=== PATIENT | male | born 1955 | race Caucasian/White ===

== ENCOUNTER 2017-04-03 05:50 | Day surgery (SDC) | payer BC ==
[2017-04-03] MEDS ORDERED: Lactated Ringers 1,000 ML IV SCH (06:30)
[2017-04-03] MEDS ORDERED: SUBLIMAZE 100 MCG/2 ML IV ONE (08:00)
[2017-04-03] MEDS ORDERED: DIPRIVAN 200 MG/20 ML IV ONE (08:30)
[2017-04-03 09:34] VITALS: BP 144/79; PULSE 65; O2SAT 95
--- NOTE | 2017-04-03 09:59 | OP ---
SURGERY DATE/TIME: 04/03/2017723 PREOPERATIVE DIAGNOSIS: Screening colonoscopy. POSTOPERATIVE DIAGNOSIS: Colitis of the cecum and distal sigmoid colon. PROCEDURE: Colonoscopy. SURGEON: Michael Cosby M.D. ANESTHESIA: MAC by Sal Alarcon CRNA. ESTIMATED BLOOD LOSS: Minimal. SPECIMENS: Cold forceps biopsies from the cecum and sigmoid colon. DESCRIPTION OF PROCEDURE: After informed written consent was obtained, the patient was taken to the endoscopy suite. He underwent monitored anesthesia and digital rectal exam showed normal sphincter tone and no internal lesions. The scope was inserted in the rectum and sequentially the entire colonic mucosa was traversed. Pericecal region had colitis-type changes with mild inflammation but no obvious masses or polypoid lesions were present. The ileocecal valve was directly visualized. Two cold forceps biopsies were taken of the pericecal region and sent for pathology testing due to the inflammatory changes. Upon withdrawal there were no lesions encountered with good visualization down to the level of the distal sigmoid colon. There was circumferential significant colitis. Pictures were taken of this area. Three cold forceps biopsies were taken circumferentially in paper sales representative area and sent for pathology testing. There were no gross masses or polypoid-type lesions in this area but just circumferential mucosal inflammatory changes. Upon further withdrawal no other lesions were encountered. Prior to withdrawal retroflexion was performed which showed no internal lesions. The scope was removed and the patient was transferred to the recovery room in excellent condition. He will follow up in one week with pathology results.
== END 2017-04-03 09:15 | disposition home or self-care (01) ==
LOC: SDC 05:50
PROVIDERS: ATTEND Family Medicine
PROC: 0DBH8ZX Excision of Cecum, Via Natural or Artificial Opening Endoscopic, Diagnostic (ICD-10-PCS; principal; 2017-04-03)
PROC: 0DBN8ZX Excision of Sigmoid Colon, Via Natural or Artificial Opening Endoscopic, Diagnostic (ICD-10-PCS; 2017-04-03)
DX: K52.9 Noninfective gastroenteritis and colitis, unspecified (principal)
CPT/HCPCS: 00810; 36415; 88305; J2704; J3010

== ENCOUNTER 2021-01-04 05:49 | Day surgery (SDC) | payer BC ==
[2021-01-04] MEDS ORDERED: Lactated Ringers 1,000 ML IV ONE ×2 (06:11→08:25)
[2021-01-04] MEDS ORDERED: Lactated Ringers 1,000 ML IV SCH (06:30)
[2021-01-04 08:54] VITALS: O2SAT 97
[2021-01-04 09:18] VITALS: PULSE 59
[2021-01-04 09:20] VITALS: BP 137/84
--- NOTE | 2021-01-04 10:40 | OP ---
SURGERY DATE/TIME: 01/04/2021 0806 PREOPERATIVE DIAGNOSES: 1) History of ulcerative colitis. 2) Rectal bleeding. POSTOPERATIVE DIAGNOSIS: Normal colon. PROCEDURE: Diagnostic colonoscopy. SURGEON: Michael Cosby M.D. ANESTHESIA: MAC by Kishor Adkins CRNA. ESTIMATED BLOOD LOSS: None. SPECIMENS: None. DESCRIPTION OF PROCEDURE: After informed written consent was obtained, the patient was taken to the endoscopy suite. He underwent monitored anesthesia and was titrated to desired level of consciousness. A digital rectal exam showed normal sphincter tone and no internal lesions. The scope was inserted into the rectum and sequentially the entire colonic mucosa was traversed. The level of cecum was reached and verified with direct visualization of the ileocecal valve. Upon withdrawal careful mucosal inspection revealed no gross mucosal abnormalities. Prep was noted to be good. There were no obvious areas of inflammation, no active bleeding, no polyps or other mucosal abnormalities were appreciable. Prior to withdrawal retroflexion was performed and showed no internal lesions. The scope was removed and the patient was transferred to the recovery room in good condition.
== END 2021-01-04 09:20 | disposition home or self-care (01) ==
LOC: SDC 05:49
PROVIDERS: ATTEND Family Medicine
DX: K62.5 Hemorrhage of anus and rectum (principal); I10 Essential (primary) hypertension; Z79.899 Other long term (current) drug therapy; Z87.19 Personal history of other diseases of the digestive system

== ENCOUNTER 2023-04-12 10:02 | Day surgery (SDC) | payer BC ==
[2023-04-12] MEDS ORDERED: EXPAREL 133 MG/10 ML VIAL IJ ONE (10:03)
[2023-04-12] MEDS ORDERED: CEFAZOLIN 2 GM-D5W BAG** 2 GM/50 ML ML IV ONE (10:20)
[2023-04-12] MEDS ORDERED: Lactated Ringers 1,000 ML IV ONE (10:20)
[2023-04-12] MEDS ORDERED: CEFAZOLIN 2 GM-D5W BAG** 2 GM/50 ML ML IV SCH (10:30)
[2023-04-12] MEDS ORDERED: Lactated Ringers 1,000 ML IV SCH (10:30)
[2023-04-12] MEDS ORDERED: Xylocaine-Mpf 2% 5 Ml Vial ONE (12:25)
[2023-04-12] MEDS ORDERED: Zofran 4 MG/2 ML VIAL ONE (12:25)
[2023-04-12] MEDS ORDERED: Decadron 4 MG INJ ONE (12:25)
[2023-04-12] MEDS ORDERED: Versed 2 MG/2 ML Injection ONE (12:26)
[2023-04-12] MEDS ORDERED: Quelicin Fliptop 200 MG/10 ML ONE (12:26)
[2023-04-12] MEDS ORDERED: SUBLIMAZE 100 MCG/2 ML ONE ×2 (12:26→14:47)
[2023-04-12] MEDS ORDERED: DIPRIVAN 200 MG/20 ML IV ONE (12:26)
[2023-04-12] MEDS ORDERED: Epinephrine Preservative Free 1 MG/ML ONE (12:29)
[2023-04-12] MEDS ORDERED: MARCAINE 0.25% PF/ EPI 1:200,000 ONE (12:35)
[2023-04-12] MEDS ORDERED: Marcaine Mpf 0.5% Vial 30 Ml ONE (12:36)
[2023-04-12] MEDS ORDERED: OFIRMEV 100 ML IV ONE (12:37)
[2023-04-12] MEDS ORDERED: Pre-Attached Lta Kit TP ONE (12:37)
[2023-04-12] MEDS ORDERED: Ephedrine Sulfate 50 MG/ML ONE (13:44)
--- NOTE | 2023-04-12 16:32 | XRAY ---
Indication: Right foot subtalar arthrodesis. Intraoperative fluoroscopy provided for 3 minute 19 seconds. 15 digital spot images submitted for interpretation ultimately demonstrates talocalcaneal fusion with 3 intact screws. Correlate with intraoperative findings/report.
[2023-04-12 17:11] VITALS: O2SAT 97
[2023-04-12 17:17] VITALS: BP 141/77; PULSE 56
--- NOTE | 2023-04-15 14:19 | OP ---
SURGERY DATE/TIME: 04/12/2023 1329 PREOPERATIVE DIAGNOSES: 1) Posttraumatic arthritis subtalar joint right foot. 2) Right foot pain. 3) Right ankle pain. 4) Ankle synovitis. 5) Sinus tarsi syndrome. POSTOPERATIVE DIAGNOSES: 1) Posttraumatic arthritis subtalar joint right foot. 2) Right foot pain. 3) Right ankle pain. 4) Ankle synovitis. 5) Sinus tarsi syndrome. PROCEDURE: Ankle arthroscopy with extensive synovectomy right ankle and subtalar joint arthrodesis right foot. SURGEON: Dinh Blake DPM. FIRMWARE ENGINEER: None. ANESTHESIA: General plus a preoperative popliteal and abductor canal block. HEMOSTASIS: Thigh tourniquet set to 300 mm of Mercury for a total of 80 total tourniquet minutes. ESTIMATED BLOOD LOSS: Less than 10 cc. MATERIALS: 4-0 Monocryl, 3-9 Nylon, one - 6.5 x 58 mm headless screw, one - 8.0 x 70 mm threaded headed screw, 6.5 x 56 mm headless screw and 1 cc of bonus triad with bone marrow aspirate. INJECTABLES: See anesthesia report for details. INDICATION FOR SURGERY: Benton is a very pleasant 67-year-old male who met with me much earlier this year in November. The patient had brought in an MRI from 2004 demonstrating a through AB fracture of the right calcaneus. The patient had a very significantly delayed presentation secondary to the fact that he did have insurance. The patient was amenable to conservative therapy at that time. However, the patient has tried lace up boots. He has failed injections for control of the pain and would like to proceed with surgical intervention at this time. The patient understands all risks, complications and benefits of surgical intervention at this time including but not limited to infection, hematoma, seroma, possibility of delayed wound healing, nonwound healing, possibility of need for further surgical intervention at a later date. No guarantees were provided as to the outcome of surgical intervention. Plenty of time was allowed for the patient to ask questions which were answered to the patient's apparent satisfaction. It is with that we decided to proceed. DESCRIPTION OF PROCEDURE AND FINDINGS: The patient is brought into the OR and placed on the OR table in the supine position. At this time, general anesthesia was administered until the patient was sedated. A well-padded thigh tourniquet was applied to the patient's right thigh. The tourniquet was set to 300 mm of Mercury. At this time right lower extremity was prepped and draped in the typical sterile fashion and lowered onto the surgical field. Attention was directed to the anterior aspect of the right ankle where the medial malleolus, lateral malleolus and the palpable dell of the ankle joint in dorsiflexion was identified. Identification line and landmarks were identified and portals were established utilizing the stab line. An insufflation needle was introduced from anteromedial portal insufflating the joint with approximately 20 cc of lactated Ringers. At this time an incision was made utilizing 11 blade to the skin. A curved hemostat was introduced into the layer and insufflation once the capsule was breached flushed out. A blunt obturator and trocar was introduced into this site. The obturator was then removed a 4.0 mm camera on a 30 degree scope was then introduced into the ankle joint. Visualization of the joint showed a significant amount of crabmeat synovitis as well as hemorrhagic synovitis. The shaver was then introduced from anterolateral portal under direct visualization and 11 blade was then utilized to make an incision through the skin and once again a curved mini hemostat was introduced to the lateral aspect of the wound this was triangulated and identified. The shaver was then introduced and a significant amount of synovitis was cleaned out from this site. The joint was inspected and deemed to be of relatively decent quality. However there had been indications of some scuffing to the tailor body. Pictures were taken of the joint prior to and after the synovectomy was performed. At this time the sites were then reversed and further extensive synovectomy was performed until there was no residual synovitis identified. Final pictures were then taken and printed this is in the patient's paper chart at this time. We removed the scope from the field. Attention was directed to the lateral aspect of the calcaneus where bone marrow aspirate was harvested this was mixed with 1 cc Bonus Triad for later use in the procedure. At this time Esmarch was utilized to exsanguinate the leg and the tourniquet was inflated to 300 mm of Mercury. Incision was made on the distal tip of the anterior process of the calcaneus to the distal tip of the fibula being careful not to dilate the calcaneal fibular ligament. At this time the incision was deepened to the level of the subtalar joint. A significant amount of time was utilized at this time to clean out the subtalar joint of any remaining cartilage of which there was very little however fenestrating the bone until the subchondral plate was identified and paprika sign bleeding was identified. At this time copious amounts of sterile saline were utilized to flush the site this occurred multiple times in order to check to make sure there was no residual cartilage on the fusion site. Once this had been achieved, 2.0 mm drill was introduced into the fusion site in order to drill for vascular channel. A curved osteotome was utilized to increase surface area and a curette was utilized to break through the subchondral plate. The 1 cc of Bonus Triad soaked in bone marrow aspirate was introduced into the fusion site and then a 6.5 x 58 headless compression screw and an 8.0 x 16 mm threaded screw was introduced into the subtalar joint trying to be as perpendicular to the posterior facet as possible this showed a good amount of compression. For added stability a headless 6.5 x 56 mm screw was introduced from the lateral aspect of the calcaneus into the talar head. Following this copious amounts of sterile saline were utilized to flush the surgical site and any sites had any opening were backfilled with some of the remaining Bonus Triad. The incisions were coapted utilizing 4-0 Monocryl in a simple interrupted-type fashion and 3-0 Nylon was utilized in a horizontal mattress-type fashion to coapt the skin edges. Following this a dressing consisting of Betadine, Adaptic, 4x4, Kerlix and a well-padded posterior splint was applied to the patient's right lower extremity. The patient was then reversed from anesthesia and returned to the postoperative anesthesia care unit with vital signs stable and vascular status intact. The patient handled the anesthesia as well as the procedure without significant complication. Postoperative orders as indicated in the patient's discharge chart.
== END 2023-04-12 17:40 | disposition home or self-care (01) ==
LOC: SDC 10:02
PROVIDERS: ATTEND Podiatrist Foot & Ankle Surgery
DX: M13.871 Other specified arthritis, right ankle and foot (principal); M79.671 Pain in right foot; M25.571 Pain in right ankle and joints of right foot; M65.9 Synovitis and tenosynovitis, unspecified
CPT/HCPCS: 28725; 29898; 73610; 76000; 76937; C1713; C1762; J0171; J0330; J0690; J1100; J2250; J2405; J2704; J3010

== ENCOUNTER 2024-12-30 05:26 | Day surgery (SDC) | payer MEDICARE ==
[2024-12-30] MEDS ORDERED: Lactated Ringers 1,000 ML IV ONE (06:06)
[2024-12-30] MEDS: Lactated Ringers 1,000 ML IV SCH (06:11)
[2024-12-30 07:04] LABS: Absolute Neutrophil Ct (ANC) 3.37 x10^3/uL (1.78-5.38); BASOPHIL % 0.5 % (0.2-1.2); Basophil (Absolute #) 0.03 x10^3/uL (0.01-0.08); Eosinophil % 2.1 % (0.8-7.0); Eosinophil (Absolute #) 0.12 x10^3/uL (0.04-0.54); Hematocrit 38.1 % (40.1-51.0); Hemoglobin 13.2 g/dL (13.7-17.5); IMMATURE GRAN # 0.02 x10^3u/L (0.001-0.031); IMMATURE GRAN % 0.3 % (0.001-0.429); Lymphocyte (Absolute #) 1.77 x10^3/uL (1.32-3.57); Lymphocytes % 30.3 % (21.8-53.1); Mean Cell Volume 89.6 fL (79.0-92.2); Mean Corpuscular Hemoglobin 31.1 pg (25.7-32.2); Mean Corpuscular Hgb Concent. 34.6 g/dL (32.3-36.5); Monocyte (Absolute #) 0.53 x10^3/uL (0.30-0.82); Monocytes % 9.1 % (5.3-12.2); Neutrophil % 57.7 % (34.0-67.9); Platelet Count 270 x10^3/uL (163-337); Red Blood Count 4.25 x10^6/uL (4.63-6.08); Red Cell Distribution Width 12.6 % (11.6-14.4); White Blood Count 5.8 x10^3/uL (4.23-9.07)
[2024-12-30] MEDS ORDERED: propofoL IV ONE (07:16)
[2024-12-30] MEDS ORDERED: Versed 2 MG/2 ML Injection ONE (07:16)
[2024-12-30 07:17] LABS: ANION GAP 12.4 MEQ/L (5-15); Calcium 9.2 mg/dL (8.4-10.2); Creatinine 1 0.82 mg/dL (0.66-1.25); EST GLOMERULAR FILTRATION RATE 96.3 ML/MIN
[2024-12-30 07:59] VITALS: RESP 16
[2024-12-30 08:07] VITALS: BP 101/68; PULSE 60; TEMP 98; O2SAT 97
--- NOTE | 2024-12-31 09:39 | OP ---
SURGERY DATE/TIME: 12/30/2024 [id number] PREOPERATIVE DIAGNOSIS: History of colon polyps. POSTOPERATIVE DIAGNOSIS: Colon polyps x2. PROCEDURE: Colonoscopy. SURGEON: Michael Cosby MD ANESTHESIA: MAC by Jerry Brady CRNA. ESTIMATED BLOOD LOSS: Minimal. SPECIMENS: Two hot forceps polypectomies, one from the ascending colon and one from the sigmoid. DESCRIPTION OF PROCEDURE AND FINDINGS: After informed written consent was obtained, the patient was taken to the endoscopy suite. He was placed in the left lateral decubitus position, and anesthesia was titrated to the desired level of consciousness. Digital rectal exam showed normal sphincter tone and no internal lesions. The scope was inserted in the rectum, and sequentially the entire colonic mucosa was traversed. The level of the cecum was reached and verified under direct visualization of the ileocecal valve. Upon withdrawal, there was a small sessile polyp in the ascending colon grasped with a forceps, cauterized and removed, and sent for pathology testing. Area was hemostatic following removal. Upon further withdrawal, in the proximal sigmoid colon, there was another small sessile polyp grasped with forceps, cauterized and removed in its entirety with good hemostasis. The remainder of the exam was unremarkable. Retroflexion showed no internal lesions. Scope was removed, and patient was sent to the recovery room in good condition. He will follow up in 1 week for pathology report.
== END 2024-12-30 08:30 | disposition home or self-care (01) ==
LOC: SDC 05:26
PROVIDERS: ATTEND Family Medicine
DX: Z09 Encounter for follow-up examination after completed treatment for conditions other than malignant neoplasm (principal); Z86.0100 Personal history of colon polyps, unspecified; D12.2 Benign neoplasm of ascending colon; D12.5 Benign neoplasm of sigmoid colon
CPT/HCPCS: 36415; 80048; 85025; 93005; J2250; J2704